=== PATIENT | female | born 1980 | race African-American/Black ===

== ENCOUNTER 2020-10-19 14:21 | Outpatient (CLI) | payer MEDICARE ==
[2020-10-19 16:05] LABS: Anion Gap 12 mmol/L (10-20); BUN (Urea Nitrogen) 10 mg/dL (7.0-18.7); Calc. Creatinine Clearance 0 mL/min (70-130); Calcium 8.7 mg/dL (7.8-10.44); Carbon Dioxide 22 mmol/L (22-29); Chloride 105 mmol/L (98-107); Glucose 87 mg/dL (70-105); Potassium 4.2 mmol/L (3.5-5.1); Sodium 135 mmol/L (136-145)
[2020-10-19 16:10] LABS: Hemoglobin 13.6 g/dL (12.0-15.5); Mean Corpuscular HGB CONC 32.2 g/dL (32.0-36.0); Mean Corpuscular Hemoglobin 28.3 pg (27.0-33.0); Mean Corpuscular Volume 87.9 fl (81.6-98.3); Platelet Count 317 10x3/uL (150-450); RBC Distribution Width 13.5 % (11.5-14.5); White Blood Cell (WBC) Count 10.6 10x3/uL (3.5-10.5)
[2020-10-20 02:11] LABS: SARS-CoV-2 PCR by NAA Not Detected (NotDetected)
== END 2020-10-19 14:22 | disposition home or self-care (01) ==
LOC: CSHLAB 14:21
PROVIDERS: ATTEND Internal Medicine Gastroenterology
DX: Z01.812 Encounter for preprocedural laboratory examination (principal); Z20.822 Contact with and (suspected) exposure to COVID-19; N64.52 Nipple discharge
CPT/HCPCS: 80048; 85027; 87635; U0003; U0005

== ENCOUNTER 2020-10-22 06:44 | Day surgery (SDC) | payer MEDICARE ==
[2020-10-20 15:44] VITALS: BMI 26.3
[2020-10-22] MEDS ORDERED: EPINEPHrine 1 MG/ML AMP ONE (07:04)
[2020-10-22] MEDS ORDERED: Bupivacaine PF 0.5% 30 ML VIAL ONE (07:05)
[2020-10-22] MEDS ORDERED: Lidocaine 1% MPF 2 ML VIAL ONE (07:37)
[2020-10-22] MEDS ORDERED: Fentanyl 100 MCG/2 ML VIAL ONE (08:36)
[2020-10-22] MEDS ORDERED: PROPOFOL 20 ML ONE (08:36)
[2020-10-22] MEDS ORDERED: Midazolam HCl 2 mg/2 ml Vial ONE (08:36)
[2020-10-22] MEDS ORDERED: Glycopyrrolate 0.2 MG/ML 5 ML SYRINGE ONE (08:37)
[2020-10-22] MEDS ORDERED: Ondansetron PF 4 MG/2 ML Vial ONE (08:37)
[2020-10-22] MEDS ORDERED: Ketorolac Tromethamine 30 MG/ML VIAL ONE (08:37)
[2020-10-22] MEDS ORDERED: Lidocaine 1% PF 5 ML VIAL ONE (08:37)
[2020-10-22] MEDS ORDERED: Dexamethasone 4 mg/ml Vial ONE (08:37)
[2020-10-22] MEDS ORDERED: HYDROcodone/Acetaminophen 5/325 mg Tablet PO PRN (10:22)
== END 2020-10-22 11:15 | disposition home or self-care (01) ==
LOC: CSHSDC 06:44
PROVIDERS: ATTEND Surgery
DX: N64.52 Nipple discharge (principal); I10 Essential (primary) hypertension; Z90.710 Acquired absence of both cervix and uterus; Z79.899 Other long term (current) drug therapy
CPT/HCPCS: 88307; J0171; J0690; J1100; J1885; J2250; J2405; J2704; J3010; S0020

== ENCOUNTER 2021-06-28 13:49 | Outpatient (CLI) | payer MEDICARE | END 2021-06-28 13:50 | disposition home or self-care (01) | LOC: CSHMRI 13:49 | PROVIDERS: ATTEND Internal Medicine Nephrology | DX: N28.1 Cyst of kidney, acquired (principal); M54.16 Radiculopathy, lumbar region; D35.01 Benign neoplasm of right adrenal gland; M51.27 Other intervertebral disc displacement, lumbosacral region | CPT/HCPCS: 72148; 74183 ==

== ENCOUNTER → 2021-10-15 | Emergency (ER) | payer MEDICARE, MEDICAID | LOC: CSHERS 12:04 | DX: Z53.21 Procedure and treatment not carried out due to patient leaving prior to being seen by health care provider (principal) ==

== ENCOUNTER 2024-08-14 08:41 | Outpatient (CLI) | payer OTHER, MEDICAID | END 2024-08-14 08:42 | disposition home or self-care (01) | LOC: CSHSLEEP 08:41 | PROVIDERS: ATTEND Otolaryngology Plastic Surgery within the Head & Neck | DX: G47.39 Other sleep apnea (principal) | CPT/HCPCS: 95800 ==

== ENCOUNTER 2025-01-30 11:48 | Day surgery (SDC) | payer OTHER, MEDICAID ==
[2025-01-29 10:22] VITALS: BMI 29.2
[2025-01-30 13:18] LABS: Hematocrit 40.1 % (34.9-44.5); Hemoglobin 12.9 g/dL (12.0-15.5); Mean Corpuscular Hemoglobin 27.4 pg (27.0-33.0); Mean Corpuscular Volume 85.3 fL (81.6-98.3); Platelet Count 366 10x3/uL (150-450); Red Blood Cell (RBC) Count 4.70 10x6/uL (3.90-5.03); White Blood Cell (WBC) Count 11.61 10x3/uL (3.5-10.5)
[2025-01-30] MEDS ORDERED: Ketorolac Tromethamine 30 MG (1 mL) VIAL ONE (13:21)
[2025-01-30] MEDS ORDERED: Acetaminophen 500 MG TAB ONE (13:22)
[2025-01-30 13:29] LABS: Anion Gap 12 mmol/L (10-20); BUN (Urea Nitrogen) 11 mg/dL (7.0-18.7); Calc. Creatinine Clearance 161 mL/min (70-130); Carbon Dioxide 24 mmol/L (22-29); Chloride 104 mmol/L (98-107); Potassium 3.8 mmol/L (3.5-5.1); Sodium 136 mmol/L (136-145)
[2025-01-30 13:30] LABS: Calcium 8.9 mg/dL (7.8-10.44); Glucose 81 mg/dL (70-105)
[2025-01-30 14:18] LABS: MDiff Complete? YES; Platelet Adequacy Comment Appears Adequate; RBC Morphology Within Normal Limits
[2025-01-30] MEDS ORDERED: Ondansetron PF 4 MG/2 ML Vial ONE ×2 (17:10→17:19)
[2025-01-30] MEDS ORDERED: PROPOFOL 20 ML ONE ×2 (17:10→17:34)
[2025-01-30] MEDS ORDERED: Bupivacaine/Epinephrine 0.25% 30 ML VIAL ONE (17:24)
[2025-01-30] MEDS ORDERED: CEFAZOLIN 2 GM VIAL ONE (17:24)
[2025-01-30] MEDS ORDERED: PHENYLEPHRINE-NS 100 MCG/ML 10 ML SYRINGE ONE (17:52)
[2025-01-30] MEDS ORDERED: Sevoflurane 250 ML INH ANEST BOTTLE ONE (17:56)
== END 2025-01-30 19:00 | disposition home or self-care (01) ==
LOC: CSHSDC 11:48
PROVIDERS: ATTEND Specialist
PROC: 0HBU0ZZ Excision of Left Breast, Open Approach (ICD-10-PCS; principal; 2025-01-30)
DX: D24.2 Benign neoplasm of left breast (principal); N61.0 Mastitis without abscess; N60.82 Other benign mammary dysplasias of left breast; N62 Hypertrophy of breast; F41.9 Anxiety disorder, unspecified; F32.A Depression, unspecified; I10 Essential (primary) hypertension; Z87.891 Personal history of nicotine dependence; Z90.710 Acquired absence of both cervix and uterus; Z88.1 Allergy status to other antibiotic agents; Z79.899 Other long term (current) drug therapy
CPT/HCPCS: 19120; 80048; 85025; 93005; J1100; J1885; J2405; J2704; J3010; 88307; 93010; C1713

== ENCOUNTER 2025-03-20 13:36 | Outpatient (CLI) | payer OTHER, MEDICAID | END 2025-03-20 13:37 | disposition home or self-care (01) | LOC: CSHULT 13:36 | PROVIDERS: ATTEND Family Medicine | DX: I10 Essential (primary) hypertension (principal); I08.0 Rheumatic disorders of both mitral and aortic valves | CPT/HCPCS: 93306 ==

== ENCOUNTER 2025-04-04 15:27 | Outpatient (CLI) | payer OTHER, MEDICAID | END 2025-04-04 15:28 | disposition home or self-care (01) | LOC: CSHULT 15:27 | PROVIDERS: ATTEND Family Medicine | DX: M79.89 Other specified soft tissue disorders (principal) | CPT/HCPCS: 93970 ==